=== PATIENT | female | born 1975 | race Caucasian/White ===

== ENCOUNTER 2018-09-01 14:48 | Emergency (ER) | payer MEDICAID ==
--- NOTE | 2018-09-01 15:28 | EDM.PDOC ---
ED HPI GENERAL MEDICAL PROBLEM - General Chief Complaint: General Stated Complaint: FELL 2 DAYS AGO Time Seen by Provider: 09/01/18 15:25 Source of Information: Reports: Patient History Limitations: Reports: No Limitations - History of Present Illness INITIAL COMMENTS - FREE TEXT/NARRATIVE: the patient comes emergency department today with complaints of a fall and headache. 2 days ago the patient was in her bathroom when she slipped on her pants fell forward striking her head on the bathtub.She did not have a loss of consciousness. Since that time she has developed kind of a nagging constant headache. Lights and sounds make her headache worse. She has had some intermittent lightheadedness but no vertigo.No change in her visual acuity. No neck pain. No change in the functionality of her upper or lower extremities.No paresthesias of the upper or lower extremity. She is able to ambulate without difficulty.She's had some nausea without vomiting. No fever no chills. No hematuria dysuria or urinary frequency. No back pain. She was seen in the clinic yesterday for her monthly Suboxone appointment but did notoffer up any these symptoms to her primary care provider. She comes to the ER echo she has concerns of a concussion. Headache Pain Score (Numeric/FACES): 5 - Related Data Allergies Allergy/AdvReac Type Severity Reaction Status Date / Time diphenhydramine Allergy Rash Verified 09/01/18 15:00 [From German] Home Meds: Home Meds Naproxen Sodium [Aleve] 220 mg PO BID PRN 05/11/18 [History] Omeprazole 20 mg PO DAILY 05/11/18 [History] Pregabalin [Lyrica] 150 mg PO BID 05/11/18 [History] buPROPion [buPROPion XL] 300 mg PO DAILY 05/11/18 [History] Buprenorphine HCl/Naloxone HCl [Suboxone 12 mg-3 mg Sl Film] 8.6 mg SL BID 05/12 [History] levETIRAcetam [Keppra] 1,000 mg PO BID #180 tablet 05/12/18 [Rx] Past Medical History - Past Health History Medical/Surgical History: Denies Medical/Surgical History HEENT History: Reports: Impaired Vision Gastrointestinal History: Reports: GERD Genitourinary History: Reports: None [employer] History: Reports: Musculoskeletal History: Reports: Arthritis, Fibromyalgia Neurological History: Reports: Seizure Psychiatric History: Reports: Addiction, Anxiety, Depression Hematologic History: Reports: Anemia, Blood Transfusion(s) Dermatologic History: Reports: Other (See Below) Other Dermatologic History: hx of dermatitis - Infectious Disease History Infectious Disease History: Reports: None - Past Surgical History Head Surgeries/Procedures: Reports: None Female Surgical History: Reports: Section Social & Family History - Family History Family Medical History: Noncontributory - Tobacco Use Smoking Status *Q: Current Every Day Smoker Years of Tobacco use: 26 Packs/Tins Daily: 1 - Caffeine Use Caffeine Use: Reports: Soda - Recreational Drug Use Recreational Drug Use: No - Living Situation & Occupation Living situation: Reports: with Family Occupation: Employed ED ROS GENERAL - Review of Systems Review Of Systems: ROS reveals no pertinent complaints other than HPI. ED EXAM, GENERAL - Physical Exam Exam: See Below Free Text/Narrative:: no gonzalez signs or raccoon's eyes Exam Limited By: No Limitations General Appearance: Alert, WD/WN, No Apparent Distress Eye Exam: Bilateral Eye: EOMI, Normal Inspection, PERRL (3) Ears: Normal External Exam, Normal Canal, Normal TMs Nose: Normal Inspection, Normal Mucosa Throat/Mouth: Normal Inspection, Normal Lips, Normal Oropharynx Head: Normocephalic, Facial Tenderness. No: Atraumatic (patient does have aapproximately 2-1/2 cm lateral laceration on the right upper forehead. There is no bony deformity bruising swelling ecchymosis small amount of tenderness. She also has some bruising on the right upper eyebrow. Although she has no tenderness ecchymosis crepitus bony deformity. Extraocular movements are intact. The rest of the head face and neck are atraumatic.), Facial Swelling, Sinus Tenderness Neck: Normal Inspection, Supple, Full Range of Motion. No: Lymphadenopathy (L) , Lymphadenopathy (R), Tender Lateral, Tender Midline Respiratory/Chest: No Respiratory Distress, Lungs Clear, Normal Breath Sounds, No Accessory Muscle Use, Chest Non-Tender Cardiovascular: Normal Peripheral Pulses, Regular Rate, Rhythm Peripheral Pulses: 2+: Radial (L), Radial (R), Posterior Tibial (L), Posterior Tibial (R), Dorsalis Pedis (L), Dorsalis Pedis (R) GI/Abdominal: Normal Bowel Sounds, Soft Back Exam: Normal Inspection, Full Range of Motion. No: Paraspinal Tenderness, Vertebral Tenderness Extremities: Normal Inspection, Normal Range of Motion, No Pedal Edema, Normal Capillary Refill Neurological: Alert, Oriented, CN II-XII Intact, Normal Cognition, Normal Gait, Normal Reflexes, No Motor/Sensory Deficits, Other (negative Romberg. She is able to walk heel-to-toe without difficulty.) Psychiatric: Normal Affect, Normal Mood Skin Exam: Warm, Dry, Intact, Normal Color, No Rash Lymphatic: No Adenopathy Course - Vital Signs Last Recorded V/S: Last Vital Signs Temp 35.5 C 09/01/18 15:03 Pulse 99 09/01/18 15:03 Resp 16 09/01/18 15:03 BP 110/83 09/01/18 15:03 Pulse Ox 100 09/01/18 15:03 - Re-Assessments/Exams Free Text/Narrative Re-Assessment/Exam: 09/01/18 isolated to the patient that she clearly has postconcussion syndrome following the concussion from her fall a couple of days ago.I did offer a CT scan of her head although she she has had 48 hours since the fall under observation. Has already been clearly met. She denies a CT scan of the head at this time. Which I feel is appropriate as she is neurologically intact and has very specific signs of postconcussion syndrome without any other pathology. We will send her home with rest decrease stimulation hydration and nausea. Decrease activity and she cannot get back to work or full activity until she isasymptomatic and she needs to follow-up with her primary care. She is comfortable with this plan and her questions are answered. Departure - Departure Time of Disposition: 15:25 Disposition: Home, Self-Care 01 Clinical Impression: Post concussion syndrome - Discharge Information Instructions: Post-Concussion Syndrome, [id number] Forms: ED Department Discharge Additional Instructions: Rest as much as possible over the next few days. Decrease stimulation from sounds lights and activity. Do not return to full activity until cleared by PCP and symptoms resolved. Zofran 1 tablet every 6 hrs as needed for nausea. RX given #9. No refills. Return to the ED if new or worsening symptoms. Follow up with PCP early to middle of next week for recheck. - Assessment/Plan Assessment:: Post-Concussion syndrome. Plan: Rest as much as possible over the next few days. Decrease stimulation from sounds lights and activity. Do not return to full activity until cleared by PCP and symptoms resolved. Zofran 1 tablet every 6 hrs as needed for nausea. RX given #9. No refills. Return to the ED if new or worsening symptoms. Follow up with PCP early to middle of next week for recheck.
== END 2018-09-01 15:33 | disposition home or self-care (01) ==
LOC: DL.ED 14:48
DX: F07.81 Postconcussional syndrome (principal); K21.9 Gastro-esophageal reflux disease without esophagitis; F17.210 Nicotine dependence, cigarettes, uncomplicated; Z88.8 Allergy status to other drugs, medicaments and biological substances; Z79.899 Other long term (current) drug therapy
CPT/HCPCS: 99282